=== PATIENT | female | born 1960 | race Caucasian/White ===

== ENCOUNTER 2019-08-30 09:38 | Outpatient (CLI) | payer BC, SELFPAY ==
--- NOTE | 2019-08-30 09:43 | MM_ITS ---
WS: [id number] BILATERAL DIGITAL SCREENING MAMMOGRAPHY WITH CAD CLINICAL INFORMATION: SCREENING HISTORY: Screening mammogram. No current complaints. COMPARISON: April 10, 2018 TECHNIQUE: Bilateral CC and MLO views. FINDINGS: The breasts are composed of heterogeneous fibroglandular density tissue, which can limit the detectio n of small underlying mass lesions. Asymmetric breast tissue upper outer left breast is unchanged. No suspicious mass, asymmetry, calcifications, or architectural distortion. No evidence of malignancy. Vascular calcification MM/[id number] IMPRESSION: BI-RADS: 2-Benign FOLLOW UP: 1 Year Follow-up Recommend return to annual screening mammography.
== END 2019-08-30 09:39 | disposition home or self-care (01) ==
LOC: RADSHAW 09:41
PROVIDERS: PCP Internal Medicine; Visit Provider Internal Medicine
DX: Z12.31 Encounter for screening mammogram for malignant neoplasm of breast (principal)
CPT/HCPCS: 77067

== ENCOUNTER 2021-02-10 11:54 | Outpatient (CLI) | payer OTHER, SELFPAY ==
--- NOTE | 2021-02-10 12:01 | MM_ITS ---
WS: [id number] BILATERAL DIGITAL SCREENING MAMMOGRAPHY WITH CAD CLINICAL INFORMATION: SCREENING HISTORY: Screening mammogram. No current complaints. COMPARISON: [id number] TECHNIQUE: Bilateral CC and MLO views. FINDINGS: The breasts are composed of heterogeneous fibroglandular density tissue, which can limit the detectio n of small underlying mass lesions. Stable nodular breast tissue upper outer left breast. No suspicio us mass, asymmetry, calcifications, or architectural distortion. No evidence of malignancy. MM/[id number] IMPRESSION: BI-RADS: 2-Benign FOLLOW UP: 1 Year Follow-up Recommend return to annual screening mammography.
== END 2021-02-10 11:55 | disposition home or self-care (01) ==
LOC: RADSHAW 12:00
PROVIDERS: PCP Internal Medicine; Visit Provider Internal Medicine
DX: Z12.31 Encounter for screening mammogram for malignant neoplasm of breast (principal)
CPT/HCPCS: 77067

== ENCOUNTER 2022-04-30 09:45 | Emergency (ER) | payer MEDICAID, SELFPAY ==
[2022-04-30 09:48] VITALS: BP 181/82; PULSE 101; RESP 18; TEMP 36.7; O2SAT 96; BMI 24.3
[2022-04-30 10:12] VITALS: BP 134/88; PULSE 89; RESP 18; O2SAT 98
--- NOTE | 2022-04-30 10:33 | ED_ITS ---
Documented by User: JAI Souza 04/30/22 12:03 HPI - Allergic Reaction General: Chief complaint: Allergic Reaction Stated complaint: poison jhon all over Time Seen by Provider: 04/30/22 09:47 History of Present Illness: HPI narrative: Patient is a 7-year-old female that presents to the emergency department with rash. Onset of symptoms . States that she was working on her son's yard on Monday. Rash developed and is only worsened over the last couple days. She was seen on in her primary care office. They provided an injection of steroids. He denies any improvement in her symptoms And has a rash to right side of face that extends up towards her eyes and into her ears. She also has a rash to her chest and left shoulder. Rash also present but to a lesser degree on her forearms. Associated symptoms: Deny abdominal pain, dysphagia, dizziness, hoarseness, nausea or vomiting Review of Systems General: Reports: 10 or more systems reviewed and unremarkable except in HPI and below Const: Denies: fever(s), chills, change in appetite, change in weight, fatigue or malaise Eyes: Denies: change in vision, eye discomfort, eye discharge or eye redness ENMT: Denies: throat pain, uvular edema, enlarged tonsils, odynophagia, hoarseness, ear or mastoid pain, ear discharge, change in hearing, tinnitus, nasal discharge, nasal congestion, post nasal drip or sinus pain Card: Denies: chest pain, palpitations, irregular heart rhythm, edema, dyspnea on exertion, orthopnea or leg pain with exertion Resp: Denies: dyspnea, productive cough, non-productive cough, wheezing, stridor or chest congestion GI: Denies: abdominal pain, nausea, vomiting, dysphagia, diarrhea, constipation, bloating, GI cramping or hematochezia : Denies: flank pain, difficulty voiding, dysuria, urinary frequency, urinary urgency, urinary hesitancy, oliguria or hematuria Musc: Denies: neck pain, back pain, extremity pain, joint pain, joint swelling, joint redness, joint warmth or muscle weakness Skin/Breast: Reports: rash, pruritus, erythema and skin swelling; Denies: photosensitivity or new lesions Neuro: Denies: headache(s), numbness in extremities, weakness in extremities, sensory changes, lack of coordination, difficulty walking, frequent falls, dizziness, confusion, Slurred speech present, difficulty communicating thoughts, seizure-like activity or involuntary movements Endo: Denies: polyuria, polydipsia or tired all the time Bhargav/Lymph: Denies: easy bruising or easy bleeding Physical Exam Const: COMMON NORMALS: no acute distress, patient oriented x3 and alert GENERAL APPEARANCE: cooperative ORIENTATION/CONSCIOUSNESS: Yes awake, Yes oriented to person, Yes oriented to place and Yes oriented to time HENMT: COMMON NORMALS: normocephalic and atraumatic HEAD & SCALP: normocephalic and atraumatic FACE & SINUS: normal facial exam MOUTH: Normal oral and palatal mucosa present THROAT: posterior oropharynx normal, tonsils normal, uvula midline and other (Very mild posterior pharynx erythema); no peritonsillar mass, uvula not laterally displaced and no uvular edema Eye: COMMON NORMALS: Equal, round and reactive pupils present, EOMs intact bilaterally, conjunctivae normal and no scleral icterus GENERAL EYE: appearance normal, both eyes and all related structures ALIGNMENT: Yes alignment normal PERIORBITAL: periorbital findings normal CONJUNCTIVA: Yes conjunctivae normal PUPIL: Yes Equal, round and reactive pupils present Neck/C-Spine: COMMON NORMALS: full ROM GENERAL: Yes normal visual inspection Lymph: LYMPHATIC: no lymphadenopathy noted Chest: COMMONS NORMALS: normal inspection of the chest Breast/axilla inspection: Yes no chest deformity, asymmetry, normal contours, no nodules, masses, tenderness Resp: COMMON NORMALS: normal respiratory effort, No retractions, No use of accessory muscles and clear to auscultation bilaterally EFFORT & INSPECTION: Yes able to speak in complete sentences and Yes symmetric chest movement AUSCULTATION: clear to auscultation bilaterally Cardio: COMMON NORMALS: regular rate, regular rhythm and Peripheral pulses 2+ throughout RATE: regular rate RHYTHM: regular rhythm PERIPHERAL PULSES: Peripheral pulses 2+ throughout GI: COMMON NORMALS: Normal to inspection, nondistended, normoactive bowel sounds present, Soft to palpation, non-tender and No hepatosplenomegaly present INSPECTION: Yes normal to inspection AUSCULTATION: Yes normoactive bowel sounds PALPATION: Yes Soft to palpation and Yes No hepatosplenomegaly present RECTAL EXAM: deferred Extremity: COMMON NORMALS: normal to inspection GENERAL: Yes normal exam except as noted Neuro: COMMON NORMALS: patient oriented x3 SENSORIUM/ORIENTATION: Yes alert, Yes oriented to person, Yes oriented to place and Yes oriented to time CRANIAL NERVES: Yes CN normal except as noted Psych: COMMON NORMALS: mental status grossly normal, Normal thought process present, cooperative, activity/motor behavior normal, denies homicidal ideation and denies suicidal ideation THOUGHT PROCESS: Normal thought process present Skin: COMMON NORMALS: no wounds and turgor normal SKIN IMAGES (FEMALE): 1. Red pruritic raised rash 2. Red pruritic raised rash 3. Red pruritic raised rash 4. Red pruritic raised rash 5. Red pruritic raised rash 6. Red pruritic raised rash 7. Red pruritic raised rash GENERAL SKIN EXAM: turgor normal Course Vital Signs: Vital signs: Vital Signs Temperature 98.1 F 04/30/22 09:48 Pulse Rate 89 04/30/22 12:06 Respiratory Rate 18 04/30/22 12:06 Blood Pressure 134/88 04/30/22 12:06 Pulse Oximetry 98 04/30/22 12:06 Oxygen Delivery Me thod 04/30/22 10:12 MDM - Allergic Reaction Medical Decision Making Patient was evaluated in the emergency department today for complaints of rash. Patient was exposed to poison jhon while working in the yard on Monday. She was evaluated by primary care on and given a dose of steroids. Symptoms have not improved. Here in the emergency department I have treated her with prednisone, famotidine, Benadryl. Patient was reevaluated and reports that she is feeling much improved. Her erythema has lessened as has the swelling that corresponds with the rash. Believe the patient could treat this further at home. We have discussed worrisome signs and when to return to the emergency department including signs of anaphylaxis. Patient will be sent home with prednisone and cetirizine for the morning, diphenhydramine for afternoon and evening, and prednisone daily. Patient is to follow-up with primary care and return here as needed. All questions answered Discharge Plan Discharge Patient Disposition: Home Clinical Impression: Allergic reaction, Contact dermatitis Condition: Stable Prescriptions: New famotidine 40 mg tablet 40 mg PO DAILY Qty: 10 0RF Benadryl 25 mg capsule 50 mg PO Q4H PRN (Reason: allergic reaction) Qty: 30 0RF prednisone 50 mg tablet 50 mg PO DAILY Qty: 5 0RF cetirizine 10 mg capsule 10 mg PO QAM PRN (Reason: allergy symptoms) Qty: 10 0RF Discharge Orders: Discharge ED (Routine); Ordered 04/30/22 Ordered By: Lito Yoo Referrals: Марина Quinteros MD [Primary Care Provider] - Discharge Diet: Advance as tolerated Discharge Activity: Resume usual activity Patient Instructions: Allergic Reaction, Pain Management Activity Restrictions/Additional Instructions: Please take medications as prescribed Please return to the emergency department for new, concerning, worsening symptoms If you develop worsening redness or warmth around the rash please see your primary care doctor or return here. You can develop a secondary infection from scratching. Please review the materials I provided Coding Level of Care Code ED Electrical Software Engineer for Chg Fwd Documented by User: Blair Diaz DO 05/02/22 06:07 HPI - Allergic Reaction General: Chief complaint: Allergic Reaction Stated complaint: poison jhon all over Time Seen by Provider: 04/30/22 09:47 Physical Exam 2 Skin: SKIN IMAGES (FEMALE): 1. Red pruritic raised rash 2. Red pruritic raised rash 3. Red pruritic raised rash 4. Red pruritic raised rash 5. Red pruritic raised rash 6. Red pruritic raised rash 7. Red pruritic raised rash Course Vital Signs: Vital signs: Vital Signs Temperature 98.1 F 04/30/22 09:48 Pulse Rate 89 04/30/22 12:06 Respiratory Rate 18 04/30/22 12:06 Blood Pressure 134/88 04/30/22 12:06 Pulse Oximetry 98 04/30/22 12:06 Oxygen Delivery Me thod 04/30/22 10:12 MDM - Allergic Reaction Medical Decision Making Patient was evaluated in the emergency department today for complaints of rash. Patient was exposed to poison jhon while working in the yard on Monday. She was evaluated by primary care on Thursday and given a dose of steroids. Symptoms have not improved. Here in the emergency department I have treated her with prednisone, famotidine, Benadryl. Patient was reevaluated and reports that she is feeling much improved. Her erythema has lessened as has the swelling that corresponds with the rash. Believe the patient could treat this further at home. We have discussed worrisome signs and when to return to the emergency department including signs of anaphylaxis. Patient will be sent home with prednisone and cetirizine for the morning, diphenhydramine for afternoon and evening, and prednisone daily. Patient is to follow-up with primary care and return here as needed. All questions answered Chart reviewed and patient discussed with midlevel. Agree with assessment and plan. Discharge Plan Discharge Patient Disposition: Home Clinical Impression: Allergic reaction, Contact dermatitis Condition: Stable Prescriptions: New famotidine 40 mg tablet 40 mg PO DAILY Qty: 10 0RF Benadryl 25 mg capsule 50 mg PO Q4H PRN (Reason: allergic reaction) Qty: 30 0RF prednisone 50 mg tablet 50 mg PO DAILY Qty: 5 0RF cetirizine 10 mg capsule 10 mg PO QAM PRN (Reason: allergy symptoms) Qty: 10 0RF Discharge Orders: Discharge ED (Routine); Ordered 04/30/22 Ordered By: Lito Yoo Referrals: Марина Quinteros MD [Primary Care Provider] - Discharge Diet: Advance as tolerated Discharge Activity: Resume usual activity Patient Instructions: Allergic Reaction, Pain Management Activity Restrictions/Additional Instructions: Please take medications as prescribed Please return to the emergency department for new, concerning, worsening symptoms If you develop worsening redness or warmth around the rash please see your primary care doctor or return here. You can develop a secondary infection from scratching. Please review the materials I provided Coding Level of Care Code ED Electrical Software Engineer for Jazmine Cintron
[2022-04-30] MEDS: famotidine 20 mg/2 mL INJ 40 MG IVP (10:41)
[2022-04-30] MEDS: diphenhydrAMINE 50 mg/mL SDV 1mL IVP (10:41)
[2022-04-30] MEDS: predniSONE 20 mg Tablet 60 MG PO (10:41)
[2022-04-30 12:06] VITALS: BP 134/88; PULSE 89; RESP 18; O2SAT 98
== END 2022-04-30 12:09 | disposition home or self-care (01) ==
PROVIDERS: Emergency Provider Nurse Practitioner; PCP Internal Medicine
DX: L23.9 Allergic contact dermatitis, unspecified cause (principal)
CPT/HCPCS: 96374; 96375; 99284; J1200; J3490; J7512

== ENCOUNTER 2022-10-24 14:19 | Outpatient (CLI) | payer MEDICAID, SELFPAY ==
--- NOTE | 2022-10-24 14:24 | XR_ITS ---
WS: [id number] SCREENING DEXA SCAN [facility] CLINICAL INFORMATION: ASYMPTOMATIC POSTMENOPAUSAL STATUS COMPARISON: None. FINDINGS: The L1-L4 bone mineral density measures 1.008 g/cm2. This corresponds to a T score score of -1.4 and Z score of -0.2. Left femoral neck bone mineral density measures 0.819 g/cm2. This corresponds to a T score of -1.5 an d Z score of -0.5. Right femoral neck bone mineral density measures 0.831 g/cm2. This corresponds to a T score -1.4of an d Z score of -0.4. Mean femoral neck bone mineral density measures 0.825 g/cm2. This corresponds to a T score of -1.4 an d Z score of -0.5. IMPRESSION: Osteopenia lumbar spine. Osteopenia femoral necks. Patient's FRAX calculated 10 year probability for major osteoporotic fracture is 16.0% and osteoporotic hip fracture is 0.7%.
== END 2022-10-24 14:20 | disposition home or self-care (01) ==
LOC: RAD 14:19
PROVIDERS: PCP Internal Medicine; Visit Provider Internal Medicine
DX: Z78.0 Asymptomatic menopausal state (principal); M85.88 Other specified disorders of bone density and structure, other site
CPT/HCPCS: 77080

== ENCOUNTER 2022-11-11 07:41 | Outpatient (CLI) | payer MEDICAID, SELFPAY ==
--- NOTE | 2022-11-11 07:52 | MM_ITS ---
WS: [id number] VIEWS: MLO and CC views both breasts. 3D digital tomosynthesis is also included in this exam. Comparison made with prior exam of 12/23/2015, 03/20/2018, 01/04/2017, 08/30/2019. 02/10/2021.. Findings: There was no sign of mass, architectural distortion or suspicious calcification in either breast. The breasts are heterogeneously dense which may obscure small masses Impression: MM/[place] [id number] BI-RADS: 2-Benign FOLLOW-UP: 1 Year Follow-up This mammogram was also analyzed by the Computer Aided Detection System R2 Imag e Kiln Operator Helper.
== END 2022-11-11 07:42 | disposition home or self-care (01) ==
PROVIDERS: PCP Internal Medicine; Visit Provider Internal Medicine
DX: Z12.31 Encounter for screening mammogram for malignant neoplasm of breast (principal)
CPT/HCPCS: 77063; 77067

== ENCOUNTER 2022-11-17 06:59 | Day surgery (SDC) | payer MEDICAID, SELFPAY ==
[2022-11-15 08:08] VITALS: BMI 25.7
--- NOTE | 2022-11-17 06:27 | W.PM.OPSFHP ---
Same Day Surgery H&P Indication for Procedure/HPI DATE OF PROCEDURE: November 17, 2022 CHIEF COMPLAINT/INDICATIONFOR SURGICAL PROCEDURE: Diarrhea PREOP DIAGNOSIS: Diverticulosis PLANNED PROCEDURE: Operation Date: 11/17/22 08:10 Proposed Procedures p Colonoscopy 40898,K57.90(Not Applicable) - Enmanuel Mcallister MD Medications/Allergies* Home Medications Medication Instructions Recorded Confirmed Type calcium carbonate 600 mg calcium 1,200 mg PO DAILY 11/16/22 11/16/22 History (1,500 mg) tablet (Calcium) cholecalciferol (vitamin D3) 25 25 mcg PO DAILY 11/16/22 11/16/22 History mcg (1,000 unit) capsule (Vitamin D3) Allergies/Adverse Reactions Allergy/AdvReac Type Severity Reaction Status Date / Time poison jhon extract Allergy Unknown Verified 11/15/22 08:09 sulfamethoxazole Allergy Unknown Verified 11/15/22 08:09 [From Bactrim] trimethoprim [From Bactrim] Allergy Unknown Verified 11/15/22 08:09 Pertinent History/Comorbid Conditions* Social History Smoking and tobacco status: never smoked Alcohol intake: never Household members: family Marital status: Current occupational status: other Details: self employed Pertinent Exam Findings alert, oriented x 3, clear to auscultation bilaterally and regular rate & rhythm Recommendations Surgery/Procedure today Coding Level of Care Code Acute Code for Chg Fwd Diagnoses
[2022-11-17 07:08] VITALS: BP 125/77; PULSE 82; RESP 18; TEMP 36.6; O2SAT 96
[2022-11-17] MEDS: sodium chloride 0.9% 1,000 ML 30 ML IV (07:11)
--- NOTE | 2022-11-17 07:16 | ANES.PREANE2 ---
Pre-Anesthetic Assessment Height/Weight: Height 1.63 m Weight 68.039 kg Temp Pulse Resp BP Pulse Ox O2 Del Method 97.8 F 82 18 125/77 96 Room Air 11/17/22 07:08 11/17/22 07:08 11/17/22 07:08 11/17/22 07:08 11/17/22 07:08 11/17/22 07:08 Preop Diagnosis: Diverticulosis Operation Date: 11/17/22 08:10 Proposed Procedures p Colonoscopy 61908,K57.90(Not Applicable) - Enmanuel Mcallister MD Familial anesthetic complications: none Was Beta Corazon taken within 24 hours: N/A Was Clonidine taken within 24 hours: N/A Last intake: Intake Last Liquid Date 11/16/22 Last Liquid Time 19:00 Last Solid Date 11/15/22 Last Intake: 22:00 Social No alcohol and No tobacco Exam alert, oriented x 3, clear to auscultation bilaterally and regular rate & rhythm Airway Submandibular: within normal limits Cervical ROM: within normal limits Mallampati: Class II Pulmonary None reported CV/HEM None reported None reported Hepatic None reported GI None reported Metabolic None reported Musc/skel Lower Back Pain and Osteoarthritis/DJD Neuropsych Anxiety Anesthetic Plan ASA status: 2 Anesthesia: MAC Risk of > 500 ml blood loss (7ml/kg in children): No Medications/Allergies Home Medications Medication Instructions Recorded Confirmed Last Taken Type calcium carbonate 600 mg calcium 1,200 mg PO DAILY 11/16/22 11/16/22 11/15/22 History (1,500 mg) tablet (Calcium) cholecalciferol (vitamin D3) 25 25 mcg PO DAILY 11/16/22 11/16/22 11/15/22 History mcg (1,000 unit) capsule (Vitamin D3) Allergies Allergy/AdvReac Type Severity Reaction Status Date / Time poison jhon extract Allergy Unknown Verified 11/17/22 07:08 sulfamethoxazole Allergy Unknown Verified 11/17/22 07:08 [From Bactrim] trimethoprim [From Bactrim] Allergy Unknown Verified 11/17/22 07:08 Current Medications Generic Name Dose Route Start Last Admin Trade Name Freq PRN Reason Stop Dose Admin Sodium Chloride 1,000 mls @ 30 mls/hr 11/17/22 07:15 11/17/22 07:11 Sodium Chloride 0.9% IV 11/18/22 07:14 30 mls/hr .Q24H CAROLE Administration PFSH Anesthesia Social History (Updated 10/13/22 @ 13:12 by Julienne Robin) Smoking and tobacco status: never smoked Alcohol intake: never Household members: family Marital status: Current occupational status: other Details: self employed Data Anesthesia Cardiac Studies: No Data to Display
[2022-11-17 08:35] VITALS: BP 101/66; PULSE 70; RESP 16; TEMP 36.1; O2SAT 97
[2022-11-17 08:40] VITALS: BP 99/75; PULSE 66; RESP 16; O2SAT 98
[2022-11-17 08:50] VITALS: BP 93/55; PULSE 64; RESP 18; O2SAT 99
--- NOTE | 2022-11-17 09:00 | ANE.PACU2 ---
Inpatient post-anesthesia follow up: Airway intact: Yes Vital signs: Temperature 97.0 F Pulse Rate 64 Respiratory Rate 18 Blood Pressure 93/55 Pulse Oximetry 99 Oxygen Delivery Me thod Room Air Oxygen Flow Rate Fraction of Inspir ed Oxygen Hydration adequate: Yes Nausea and vomiting: No Pain level: 1 Mental status: Baseline
== END 2022-11-17 09:10 | disposition home or self-care (01) ==
PROVIDERS: PCP Internal Medicine; Visit Provider Surgery
PROC: 0DJD8ZZ Inspection of Lower Intestinal Tract, Via Natural or Artificial Opening Endoscopic (ICD-10-PCS; CPT 45378; principal; 2022-11-17 08:10)
DX: K57.90 Diverticulosis of intestine, part unspecified, without perforation or abscess without bleeding (principal)
CPT/HCPCS: 45378; J2704; J7030

== ENCOUNTER 2023-11-28 08:58 | Outpatient (CLI) | payer MEDICAID, SELFPAY ==
--- NOTE | 2023-11-28 09:01 | MM_ITS ---
WS: [id number] BILATERAL 3D TOMOSYNTHESIS DIGITAL SCREENING MAMMOGRAPHY WITH CAD CLINICAL INFORMATION: SCREENING HISTORY: Screening mammogram. No current complaints. COMPARISON: 2022 TECHNIQUE: Bilateral CC and MLO views. FINDINGS: The breasts are composed of heterogeneous fibroglandular density tissue, which can limit the detectio n of small underlying mass lesions. No suspicious mass, asymmetry, calcifications, or architectural d istortion. No evidence of malignancy. Vascular calcification. MM/MM [facility] tomosynthesis [id number] IMPRESSION: DENSITY: The breasts are heterogeneously dense, which may obscure small masses. BI-RADS: 2 - Benign FOLLOW UP: 1 Year Follow-up Recommend return to annual screening mammography.
== END 2023-11-28 08:59 | disposition home or self-care (01) ==
LOC: RAD 08:58
PROVIDERS: PCP Internal Medicine; Visit Provider Internal Medicine
DX: Z12.31 Encounter for screening mammogram for malignant neoplasm of breast (principal); R92.333 Mammographic heterogeneous density, bilateral breasts; R92.1 Mammographic calcification found on diagnostic imaging of breast
CPT/HCPCS: 77063; 77067

== ENCOUNTER 2024-12-23 07:41 | Outpatient (CLI) | payer MEDICAID, SELFPAY ==
--- NOTE | 2024-12-23 | MM_ITS ---
WS: [id number] BILATERAL SCREENING DIGITAL TOMOSYNTHESIS MAMMOGRAM WITH CAD HISTORY: ANNUAL SCREENING COMPARISON: 11/28/2023, 11/11/2022, 02/10/2021 Bilateral CC and MLO views with tomosynthesis and synthetic mammography submitted. Computer aided detection analyzed. Breast composition: There are scattered areas of fibroglandular density. No suspicious masses, microcalcifications or architectural distortion. MM/MM scr BI tomosynthesis [id number] IMPRESSION: BI-RADS: 2 - Benign. FOLLOW UP: 1 Year Follow-up
== END 2024-12-23 07:42 | disposition home or self-care (01) ==
LOC: RAD 07:41
PROVIDERS: PCP Internal Medicine; Visit Provider Internal Medicine
DX: Z12.2 Encounter for screening for malignant neoplasm of respiratory organs (principal); R92.323 Mammographic fibroglandular density, bilateral breasts
CPT/HCPCS: 77063; 77067